=== PATIENT | male | born 1980 | race Caucasian/White ===

== ENCOUNTER 2021-11-01 10:29 | Emergency (ER) | payer BC, OTHER ==
[2021-11-01 10:38] VITALS: BP 153/78; PULSE 66; TEMP 98; BMI 27.1
[2021-11-01 13:19] LABS: BASO % 0.4 % (0-2.0); EOS % 2.7 % (0-4.5); HEMATOCRIT 44.6 % (35.4-49); HEMOGLOBIN 14.9 GM/dL (11.7-16.9); MCH 29.5 pg (25.7-33.7); MCHC 33.5 g/dl (32.0-35.9); MEAN CELL VOLUME 87.9 fl (80-96); MEAN PLT VOLUME 8.5 fl (7.5-11.1); MONO % 7.6 % (3.8-10.2); NEUT % 74.3 % (42.8-82.8); PLATELET COUNT 210 10^3/uL (134-434); RBC 5.07 M/mm3 (4.00-5.60); RDW 13.6 % (11.9-15.9); WHITE BLOOD COUNT 6.7 K/mm3 (4.0-10.0)
[2021-11-01 13:33] LABS: CALCIUM 9.2 mg/dL (8.5-10.1)
[2021-11-01 13:34] LABS: ALBUMIN 4.4 g/dl (3.4-5.0); BLOOD UREA NITROGEN 17.6 mg/dL (7-18)
[2021-11-01 13:39] LABS: BILIRUBIN,TOTAL 0.4 mg/dL (0.2-1); TOT PROT 7.6 g/dl (6.4-8.2)
== END 2021-11-01 17:26 | disposition home or self-care (01) ==
LOC: JER 10:29
DX: H53.8 Other visual disturbances (principal)
CPT/HCPCS: 36415; 70450-TC; 80053; 85025; 93005; 93010; 93880-TC; 99284-25; C9803-CS; U0003; U0005